=== PATIENT | female | born 1960 | race African-American/Black ===

== ENCOUNTER 2019-12-13 17:30 | Emergency (ER) | payer BC, SELFPAY ==
[2019-12-13 17:40] VITALS: BP 191/97; PULSE 74; RESP 20; TEMP 36.2; O2SAT 99
--- NOTE | 2019-12-13 19:03 | DI.RAD.S_ITS ---
PROCEDURE: XR THORACIC SPINE 2V INDICATIONS: left t spine pain TECHNIQUE: 2 views of the thoracic spine were acquired. COMPARISON: [facility], , THORACIC SPINE 3 VIEWS, 03/05/2016, 11:19. FINDINGS: Bones: No fractures or dislocations. No suspicious bony lesions. 12 pairs of ribs are noted, and appear intact where visualized. Soft tissues: No paravertebral stripe thickening. IMPRESSION: No evidence acute bony abnormality of the thoracic spine. If clinical suspicion and/or symptoms persist, further assessment with repeat plain films, or advanced imaging (e.g., CT, MRI, or bone scan) may be helpful for further assessment. Dictated by: Henrry Byrd M.D. on 12/13/2019 at 19:51 Approved by: Henrry Byrd M.D. on 12/13/2019 at 19:52
[2019-12-13] MEDS: CYCLOBENZAPRINE 10 MG TABLET PO (19:18)
[2019-12-13] MEDS: KETOROLAC 60 MG/2 ML VIAL 30 MG IM (19:18)
[2019-12-13] MEDS: LIDOCAINE PATCH 1 EACH ADH..PATCH TOP (19:19)
[2019-12-13 19:54] VITALS: BP 183/87; PULSE 59; RESP 12; O2SAT 99
[2019-12-13] MEDS: HYDROCODONE/ACET 5/325 TABLET 1 TAB PO (20:32)
--- NOTE | 2019-12-13 20:50 | ED.BACK ---
HPI - Back Pain/Injury <JAZMYNE Sellers - Last Filed: 12/14/19 11:16> General Chief Complaint: Back Pain/Injury Stated Complaint: chest pain Time Seen by Provider: 12/13/19 18:51 Source: patient and family Mode of arrival: Ambulatory Limitations: no limitations History of Present Illness HPI Narrative: The patient is a 59-year-old female who presents with a chief complaint of left-sided shoulder pain. It started 2 days ago. It comes is goes, is brought on by movement and twisting and reaching with her left arm. Patient does note that she had a ground level fall approximately 3 weeks ago and was seen at outside facility. She denies any chest pain or shortness of breath. She states that her pain feels very tight when it comes. It is nonradiating. She has not taken anything to try to feel better. She denies any recent falls or trauma since her ground level fall. She does work at [employer]. And she is able to point exactly where her pain is in her left back. Related Data Previous Rx's Medication Instructions Recorded hydrocodone-acetaminophen 1 tab PO HSP PRN #45 tab 03/05/16 simvastatin [Zocor] 80 mg PO Q PM #90 tab 07/14/16 levothyroxine 137 mcg PO HS #45 tab 08/12/16 bupropion HCl [Wellbutrin XL] 150 mg PO QDAY #30 tab 11/10/16 cyclobenzaprine 10 mg PO TID PRN #20 tab 12/13/19 hydrocodone-acetaminophen 1 tab PO Q4-6H PRN #5 tab 12/13/19 ketorolac 10 mg PO TID PRN #14 tab 12/13/19 Allergies Allergy/AdvReac Type Severity Reaction Status Date / Time nifedipine [NIFEDIPINE] AdvReac Severe MILD STROKE Verified 12/13/19 19:17 Penicillins [PENICILLINS] AdvReac Severe BAD YEAST Verified 12/13/19 19:15 INFECTION Review of Systems <JAZMYNE Sellers - Last Filed: 12/14/19 11:16> Review of Systems Narrative: GENERAL: Denies chills, fatigue, malaise, fever, sweats. HEENT: Denies sinus pain, ear pain, sore throat, difficulty swallowing, dizziness. RESPIRATORY: Denies dyspnea, cough, wheezing, hemoptysis, sputum. CARDIOVASCULAR: Denies chest pain, palpitations, orthopnea, edema, GASTROINTESTINAL: Denies nausea, vomiting, abdominal pain, diarrhea, constipation, melena. : Denies dysuria, frequency, incontinence, hematuria, urinary retention. MUSCULOSKELETAL: See HPI SKIN: Denies rash, skin lesions, or other NEUROLOGIC: Denies weakness, headache, numbness, change in speech, confusion, seizures, incoordination. PSYCHIATRIC: No concerning psychosocial issues. 12 point review of systems is negative except for those stated above Patient History <DELIA Sellers-BC - Last Filed: 12/14/19 11:16> Family History (Updated 02/19/16 @ 00:00 by Conversion Provider) Father Stomach cancer [place] (myocardial infarction) Mother Hypertension Heart disease Exam <JAZMYNE Sellers - Last Filed: 12/14/19 11:16> Narrative Exam Narrative: GENERAL: This is a well-nourished, well-developed patient, in no acute distress HEAD: Atraumatic. Normocephalic. No temporal or scalp tenderness. EYES: Pupils equal round and reactive. Extraocular motions intact. No scleral icterus. No injection or drainage. ENT: Nose without bleeding, purulent drainage or septal hematoma. Throat without erythema, tonsillar hypertrophy or exudate. Uvula midline. Airway patent. NECK: Trachea midline. No JVD or lymphadenopathy. Supple, nontender, no meningeal signs. CARDIOVASCULAR: Regular rate and rhythm RESPIRATORY: Clear to auscultation. Breath sounds equal bilaterally. No wheezes, rales, or rhonchi. No cough. No increased respiratory effort. No accessory muscle use. GASTROINTESTINAL: Abdomen soft, non-tender, nondistended. No hepato-splenomegaly, or palpable masses. No guarding. EXTREMITIES: general pain to palpation left posterior shoulder. Positive left radial pulse. BACK: Pain to thoracic spinal palpation, left-sided paraspinal muscles. No pain to CT or L-spine palpation. NEURO: AOx3. SKIN: No rash or erythema. Initial Vital Signs Initial Vital Signs: Vital Signs Temperature 97.2 F L 12/13/19 17:40 Pulse Rate 74 12/13/19 17:40 Respiratory Rate 20 12/13/19 17:40 Blood Pressure 191/97 H 12/13/19 17:40 Pulse Oximetry 99 12/13/19 17:40 <Darek Oconnor DO - Last Filed: 12/14/19 18:08> Initial Vital Signs Initial Vital Signs: Vital Signs Temperature 97.2 F L 12/13/19 17:40 Pulse Rate 74 12/13/19 17:40 Respiratory Rate 20 12/13/19 17:40 Blood Pressure 191/97 H 12/13/19 17:40 Pulse Oximetry 99 12/13/19 17:40 Scores <JAZMYNE Sellers - Last Filed: 12/14/19 11:16> GCS Akanksha coma scale eye opening: Spontaneous Akanksha coma scale verbal response: Orientated [place] coma scale motor response: Obey commands Akanksha coma scale total score: 15 Course <JAZMYNE Sellers - Last Filed: 12/14/19 11:16> Orders Ordered: Discontinued Medications Hydrocodone Bitart/Acetaminophen ([place] 5/325) 1 tab PO NOW ONE Stop: 12/13/19 20:24 Last Admin: 12/13/19 20:32 Dose: 1 tab Documented by: FLOR Hydrocodone Bitart/Acetaminophen (Vicodin 5/325 Prepack) 1 bottle MISC SEEINSTR ONE Stop: 12/13/19 21:10 Last Admin: 12/13/19 21:21 Dose: 1 bottle Documented by: FLOR Cyclobenzaprine HCl (Flexeril) 10 mg PO NOW ONE Stop: 12/13/19 19:02 Last Admin: 12/13/19 19:18 Dose: 10 mg Documented by: FLOR Ketorolac Tromethamine (Toradol) 30 mg IM NOW ONE Stop: 12/13/19 19:02 Last Admin: 12/13/19 19:18 Dose: 30 mg Documented by: FLOR Lidocaine (Lidoderm) 1 each TOP NOW ONE Stop: 12/13/19 19:02 Last Admin: 12/13/19 19:19 Dose: 1 each Documented by: FLOR Vital Signs Vital signs: Vital Signs - 8 hr 12/13/19 17:40 12/13/19 19:54 Temperature 97.2 F L Pulse Rate 74 59 L Respiratory Rate 20 12 Blood Pressure 191/97 H Blood Pressure [Right Arm] 183/87 H Pulse Oximetry 99 99 <Darek Oconnor DO - Last Filed: 12/14/19 18:08> Orders Ordered: Discontinued Medications Hydrocodone Bitart/Acetaminophen ([place] 5/325) 1 tab PO NOW ONE Stop: 12/13/19 20:24 Last Admin: 12/13/19 20:32 Dose: 1 tab Documented by: FLOR Hydrocodone Bitart/Acetaminophen (Vicodin 5/325 Prepack) 1 bottle MISC SEEINSTR ONE Stop: 12/13/19 21:10 Last Admin: 12/13/19 21:21 Dose: 1 bottle Documented by: FLOR Cyclobenzaprine HCl (Flexeril) 10 mg PO NOW ONE Stop: 12/13/19 19:02 Last Admin: 12/13/19 19:18 Dose: 10 mg Documented by: FLOR Ketorolac Tromethamine (Toradol) 30 mg IM NOW ONE Stop: 12/13/19 19:02 Last Admin: 12/13/19 19:18 Dose: 30 mg Documented by: FLOR Lidocaine (Lidoderm) 1 each TOP NOW ONE Stop: 12/13/19 19:02 Last Admin: 12/13/19 19:19 Dose: 1 each Documented by: FLOR Vital Signs Vital signs: Vital Signs - 8 hr 12/13/19 17:40 12/13/19 19:54 Temperature 97.2 F L Pulse Rate 74 59 L Respiratory Rate 20 12 Blood Pressure 191/97 H Blood Pressure [Right Arm] 183/87 H Pulse Oximetry 99 99 MDM - Back Pain/Injury <JAZMYNE Sellers - Last Filed: 12/14/19 11:16> Imaging Data t spine xray : Radiologist's Impression: [address] [place] [id number] XRay Report Signed Patient: Thalia Espinal LMR#: [id number] : 1960Acct:[id number] Age/Sex: 59 / FDate of Service: 12/13/19 Loc: ED Accession Number: [id number] Procedure: XR thoracic spine 2V Ordering Provider: Monserrat Tse PROCEDURE: XR THORACIC SPINE 2V INDICATIONS: left t spine pain TECHNIQUE: 2 views of the thoracic spine were acquired. COMPARISON: [facility], , THORACIC SPINE 3 VIEWS, 03/05/2016, 11:19. FINDINGS: Bones: No fractures or dislocations. No suspicious bony lesions. 12 pairs of ribs are noted, and appear intact where visualized. Soft tissues: No paravertebral stripe thickening. IMPRESSION: No evidence acute bony abnormality of the thoracic spine. If clinical suspicion and/or symptoms persist, further assessment with repeat plain films, or advanced imaging (e.g., CT, MRI, or bone scan) may be helpful for further assessment. Dictated by: Henrry Byrd M.D. on 12/13/2019 at 19:51 Approved by: Henrry Byrd M.D. on 12/13/2019 at 19:52 ECG Data Attestation: I personally reviewed and interpreted this ECG as follows: Interpretation: Sinus rhythm. Ventricular rate 65. P.r. 170. QRS 86. viewed by Dr Oconnor. [facility] Narrative Medical decision making narrative: The patient is a 59-year-old female who presents with a chief complaint of left-sided mid back pain that started yesterday. Is worse with reaching her arm, motion and twisting which raises concern for a musculoskeletal pathology. X-ray has no acute findings. EKG was done given that the patient has back pain and his female, and had no acute findings. The patient feels much improved after the above-stated therapies in prescriptions were prescribed. I discussed at length the importance of following up with primary care provider and gave her contact information at [facility] health water resource engineering specialist. Discussed coming back to the emergency department for any acute concerns such as chest pain, shortness of breath concern of heart attack or stroke. Patient daughter in-law have no questions or concerns upon discharge and state understanding of return precautions as well as follow-up care. Discharge Plan Departure Patient Disposition: Home Clinical Impression: Acute thoracic back pain Qualifiers: Back pain laterality: left Qualified Code(s): M54.6 - Pain in thoracic spine Discharge Date/Time: 12/13/19 21:26 Instructions: DI for Back Spasm, DI for Thoracic Back Pain Activity Restrictions/Additional Instructions: Thank you for trusting us with your care today As I discussed, your x-ray is no acute findings and your EKG looks good I sent 3 prescriptions to [facility]. I have given you a prescription of Toradol. This is an NSAID. Do not combine it with other NSAIDs such as Aleve or ibuprofen. I suggest taking it with some food, as it can irritate your stomach. I have given you a prescription of a narcotic for pain. Be aware that this can be constipating and sedating. I encouraged taking with a stool softener, pushing fluids and fiber. Do not take and drive, operate heavy machinery, etc. Do not combine it with any other sedating substances such as alcohol. The combination of narcotics and alcohol and/or other sedatives can be lethal. Please follow-up with primary care provider. I have given you contact information for the [facility] water resource engineering specialist. They can help you identify a PCP. As discussed please come back to the emergency department for any acute concerns. This includes concern of heart attack or stroke. Also includes new onset incontinence of bowel, incontinence of bladder or numbness in her groin. These are signs of spinal injury. Please come to the emergency department for any acute concerns. Prescriptions: New hydrocodone-acetaminophen 5-325 mg tablet 1 tab PO Q4-6H PRN (Reason: pain) Qty: 5 RF: 0 cyclobenzaprine 10 mg tablet 10 mg PO TID PRN (Reason: muscle spasm) Qty: 20 RF: 0 ketorolac 10 mg tablet 10 mg PO TID PRN (Reason: pain) Qty: 14 RF: 0 No Action hydrocodone-acetaminophen 5 MG/325 MG tablet 1 tab PO HSP PRNQty: 45 RF: 0 simvastatin [Zocor] 80 MG tablet 80 mg PO Q PM Qty: 90 RF: 1 levothyroxine 137 MCG tablet 137 mcg PO HS Qty: 45 RF: 0 bupropion HCl [Wellbutrin XL] 150 MG tablet extended release 24 hr 150 mg PO QDAY Qty: 30 RF: 0 Referrals: [facility] [Outside] <Darek Oconnor, - Last Filed: 12/14/19 18:08> [facility]: Dr Oconnor Co-Sign Statement: I was available for consultation during this patient's emergency department visit. This chart is signed by myself for administrative purposes only. I did not have direct contact with this patient during this visit. They were seen independently by the APC.
[2019-12-13] MEDS: HYDROCODONE/ACET 5/325 PREPACK 1 BOTTLE MISC (21:21)
[2019-12-13 21:24] VITALS: BP 155/69; PULSE 61; RESP 12; O2SAT 100
== END 2019-12-13 21:26 | disposition home or self-care (01) ==
PROVIDERS: Emergency Provider Nurse Practitioner Family; Family Provider Physician Assistant
DX: M54.6 Pain in thoracic spine (principal); R07.9 Chest pain, unspecified
CPT/HCPCS: 72070; 93005; 96372; 99283; 99284; J1885

== ENCOUNTER 2021-07-31 09:47 | Emergency (ER) | payer OTHER, SELFPAY ==
[2021-07-31 09:54] VITALS: BP 167/119; PULSE 63; PULSE 84; RESP 17; TEMP 37.4; O2SAT 100; O2SAT 99; BMI 29.0
[2021-07-31 09:55] VITALS: BP 167/119; PULSE 75; RESP 19; O2SAT 99
--- NOTE | 2021-07-31 09:59 | DI.RAD.S_ITS ---
PROCEDURE: XR CHEST 1V INDICATIONS: chest pain TECHNIQUE: One view of the chest was acquired. COMPARISON: [facility], , CHEST 2 VIEW, 02/20/2016, 9:05. FINDINGS: Surgical changes and devices: None. Lungs and pleura: On this semiupright portable chest examination, no large pneumothorax or large pleural effusions are seen. No focal infiltrates are seen. Mediastinum: Mediastinal contours appear normal. Heart size is normal. Bones and chest wall: No suspicious bony lesions. Age-appropriate bony degenerative changes are seen. Overlying soft tissues appear unremarkable. IMPRESSION: Portable chest within normal limits. Dictated by: Dominick Sanchez M.D. on 07/31/2021 at 9:51 Approved by: Dominick Sanchez M.D. on 07/31/2021 at 9:51
[2021-07-31 10:00] VITALS: BP 157/72; PULSE 74; RESP 21; O2SAT 100
--- NOTE | 2021-07-31 10:17 | ED.CHESTPAIN ---
HPI - Chest Pain General Chief Complaint: Chest Pain Stated Complaint: chest pains Time Seen by Provider: 07/31/21 10:03 Source: patient Mode of arrival: Ambulatory Limitations: no limitations History of Present Illness HPI narrative: 61-year-old female nonsmoker with history of GERD, hypothyroidism and hyperlipidemia presents with family in the chief complaint of a sharp and stabbing left anterior chest pain and upper respiratory symptoms including runny nose, nasal congestion and occasional harsh cough. Her pain is sharp and stabbing and worse with deep breath and cough. She denies fever or chills. She is not significantly short of breath. She denies nausea, vomiting or diarrhea. She denies any hemoptysis. She is fully vaccinated against COVID including booster. Related Data Previous Rx's Medication Instructions Recorded hydrocodone 5 mg-acetaminophen 325 1 tab PO HSP PRN #45 tab 03/05/16 mg tablet simvastatin 80 mg tablet (Zocor) 80 mg PO Q PM #90 tab 07/14/16 levothyroxine 137 mcg tablet 137 mcg PO HS #45 tab 08/12/16 bupropion HCl 150 mg 24 hr tablet, 150 mg PO QDAY #30 tab 11/10/16 extended release (Wellbutrin XL) cyclobenzaprine 10 mg tablet 10 mg PO TID PRN #20 tab 12/13/19 hydrocodone 5 mg-acetaminophen 325 1 tab PO Q4-6H PRN #5 tab 12/13/19 mg tablet ketorolac 10 mg tablet 10 mg PO TID PRN #14 tab 12/13/19 Allergies Allergy/AdvReac Type Severity Reaction Status Date / Time nifedipine [NIFEDIPINE] AdvReac Severe MILD STROKE Verified 07/31/21 09:59 Penicillins [PENICILLINS] AdvReac Severe BAD YEAST Verified 07/31/21 09:59 INFECTION Review of Systems Review of Systems Narrative: GENERAL: Denies chills, fatigue, malaise, fever, sweats. HEENT: Denies sinus pain, ear pain, sore throat, difficulty swallowing, dizziness. RESPIRATORY: See HPI CARDIOVASCULAR: See HP GASTROINTESTINAL: Denies nausea, vomiting, abdominal pain, diarrhea, constipation, melena. : Denies dysuria, frequency, incontinence, hematuria, urinary retention. MUSCULOSKELETAL: denies weakness, joint pain, or bony pain SKIN: Denies rash, skin lesions, or other NEUROLOGIC: Denies weakness, headache, numbness, change in speech, confusion, seizures, incoordination. PSYCHIATRIC: No concerning psychosocial issues. 12 point review of systems is negative except for those stated above Patient History Family History Father Stomach cancer MT (myocardial infarction) Mother Hypertension Heart disease Social History Smoking Status: Unknown if ever smoked Smoking Status: Unknown if ever smoked alcohol intake frequency: holidays/special occasions only Substance Use Type: does not use Exam Narrative Exam Narrative: GENERAL: [61 year old patient appears stated age. Well-developed patient, in mild distress. HEAD: Atraumatic. Normocephalic. EYES: Pupils equal round and reactive. Extraocular motions intact. No scleral icterus. No injection or drainage. ENT: Nose without bleeding, purulent drainage. Throat without erythema, tonsillar hypertrophy or exudate. Airway patent. NECK: Trachea midline. Non tender CARDIOVASCULAR: Regular rate and rhythm without murmurs, gallops, or rubs. Left lower ribs tender to palpate RESPIRATORY: Clear to auscultation. Breath sounds equal bilaterally. No wheezes, rales, or rhonchi. GASTROINTESTINAL: Abdomen soft, non-tender, nondistended. EXTREMITIES: No edema or joint tenderness. BACK: Nontender without deformity or crepitance. No flank tenderness. NEURO: AOx3. SKIN: No rash or erythema of visible areas Initial Vital Signs Initial Vital Signs: Vital Signs Temperature 99.4 F 07/31/21 09:54 Pulse Rate 63 07/31/21 09:54 Respiratory Rate 17 07/31/21 09:54 Blood Pressure 167/119 H 07/31/21 09:54 Pulse Oximetry 99 07/31/21 09:54 Course Orders Ordered: ED Orders 07/31/21 10:20 Complete Blood Count AUTO DIFF Stat Comprehensive Metabolic Panel Stat D Dimer Stat Lipase Stat Magnesium Stat Partial Thromboplastin Time Stat Procalcitonin Stat Prothrombin Time INR Stat Troponin & CK Cardiac Panel Stat Discontinued Medications Ketorolac Tromethamine (Ketorolac 30 Mg/Ml Vial) 15 mg IV NOW ONE Stop: 07/31/21 11:28 Last Admin: 07/31/21 11:42 Dose: 15 mg Documented by: ESTELA Vital Signs Vital signs: Vital Signs - 8 hr 07/31/21 11:30 Pulse Rate 72 Respiratory Rate 18 Blood Pressure 159/75 H Pulse Oximetry 99 MDM - Chest Pain Lab Data Result diagrams: 07/31/21 10:20 07/31/21 10:20 Labs: Lab Results 07/31/21 07/31/21 07/31/21 Range/Units 09:59 10:20 10:20 WBC 4.9 (4.5-11.0) X10^3/uL RBC 5.08 (4.0-5.2) X10^6/uL Hgb 12.9 (12.0-16.0) g/dL Hct 39.9 (36-46) % MCV 78.5 L (80-100) fL MCH 25.3 L (26-34) PG MCHC 32.2 (30-36) % RDW 15.7 H (11.6-14.8) % Plt Count 134 L (150-400) X10^3/uL Neut % (Auto) 44.3 L (50-75) % Lymph % (Auto) 38.7 (25-40) % [place] % (Auto) 16.2 H (3-14) % Eos % (Auto) 0.3 L (2-4) % Baso % (Auto) 0.5 (0-2) % Neut # (Auto) 2200 (5603-6144) /uL Lymph # (Auto) 1900 (7934-1379) /uL [place] # (Auto) 800 (0-900) /uL Eos # (Auto) 0 (0-450) /uL Baso # (Auto) 0 (0-100) /uL PT 12.1 (10.1-12.7) SECONDS INR 1.1 (0.9-1.3) APTT 34 (26.4-36.2) SECONDS D-Dimer (<230) ng/mL Sodium (137-145) mmol/L Potassium (3.4-5.1) mmol/L Chloride (98-107) mmol/L Carbon Dioxide (22-32) mmol/L BUN (7-17) mg/dL Creatinine (0.52-1.04) mg/dL Estimated GFR (>60) mL/min BUN/Creatinine Ratio (6-22) Glucose (70-100) mg/dL Calcium (8.4-10.2) mg/dL Magnesium (1.6-2.3) mg/dL Total Bilirubin (0.2-1.3) mg/dL AST (14-36) IU/L ALT (<35) IU/L Alkaline Phosphatase (38-126) U/L Total Creatine Kinase (30-135) U/L CK-MB (CK-2) CK-MB (CK-2) Rel Index Troponin I (0.01-0.034) ng/mL Total Protein (6.3-8.2) g/dL Albumin (3.5-5.0) g/dL Globulin (1.7-4.1) g/dL Albumin/Globulin Ratio (1.0-2.8) Lipase (23-300) U/L Procalcitonin (<0.5) ng/mL SARS-CoV-2 (PCR) Positive H (Negative) 07/31/21 07/31/21 07/31/21 Range/Units 10:20 10:20 10:20 WBC (4.5-11.0) X10^3/uL RBC (4.0-5.2) X10^6/uL Hgb (12.0-16.0) g/dL Hct (36-46) % MCV (80-100) fL MCH (26-34) PG MCHC (30-36) % RDW (11.6-14.8) % Plt Count (150-400) X10^3/uL Neut % (Auto) (50-75) % Lymph % (Auto) (25-40) % [place] % (Auto) (3-14) % Eos % (Auto) (2-4) % Baso % (Auto) (0-2) % Neut # (Auto) (7179-8289) /uL Lymph # (Auto) (3642-9428) /uL [place] # (Auto) (0-900) /uL Eos # (Auto) (0-450) /uL Baso # (Auto) (0-100) /uL PT (10.1-12.7) SECONDS INR (0.9-1.3) APTT (26.4-36.2) SECONDS D-Dimer 300 H (<230) ng/mL Sodium 142 (137-145) mmol/L Potassium 3.6 (3.4-5.1) mmol/L Chloride 106 (98-107) mmol/L Carbon Dioxide 28 (22-32) mmol/L BUN 13 (7-17) mg/dL Creatinine 0.89 (0.52-1.04) mg/dL Estimated GFR > 60.0 (>60) mL/min BUN/Creatinine Ratio 14.6 (6-22) Glucose 90 (70-100) mg/dL Calcium 9.6 (8.4-10.2) mg/dL Magnesium 2.2 (1.6-2.3) mg/dL Total Bilirubin 0.6 (0.2-1.3) mg/dL AST 26 (14-36) IU/L ALT 18 (<35) IU/L Alkaline Phosphatase 69 (38-126) U/L Total Creatine Kinase 73 (30-135) U/L CK-MB (CK-2) TNP CK-MB (CK-2) Rel Index TNP Troponin I < 0.012 (0.01-0.034) ng/mL Total Protein 7.7 (6.3-8.2) g/dL Albumin 4.2 (3.5-5.0) g/dL Globulin 3.5 (1.7-4.1) g/dL Albumin/Globulin Ratio 1.2 (1.0-2.8) Lipase 36 (23-300) U/L Procalcitonin 0.13 (<0.5) ng/mL SARS-CoV-2 (PCR) (Negative) Imaging Data Chest x-ray: Radiologist's Impression: [address] [address] XRay Report Signed Patient: Thalia Espinal MR#: [id number] : 1960 Acct:[id number] Age/Sex: 61 / F Date of Service: 07/31/21 Loc: ED Accession Number: [id number] ?? Procedure: XR chest 1V Ordering Provider: Dread Roman D.O. PROCEDURE:? XR CHEST 1V ? INDICATIONS:? chest pain ? TECHNIQUE:? One view of the chest was acquired.? ? COMPARISON:? [facility], , CHEST 2 VIEW, 02/20/2016, 9:05. ? FINDINGS:? ? Surgical changes and devices:? None.? ? Lungs and pleura:? On this semiupright portable chest examination, no large pneumothorax or large pleural effusions are seen.? No focal infiltrates are seen.? ? Mediastinum:? Mediastinal contours appear normal.? Heart size is normal.? ? Bones and chest wall:? No suspicious bony lesions.? Age-appropriate bony degenerative changes are seen. ? Overlying soft tissues appear unremarkable.? ? ? IMPRESSION:? ? Portable chest within normal limits. ? ? ? Dictated by: Dominick Sanchez M.D. on 07/31/2021 at 9:51 ? ? Approved by: Dominick Sanchez M.D. on 07/31/2021 at 9:51 ? MDM Narrative Medical decision making narrative: Patient with very reassuring history and physical exam. Multiple causes of chest pain considered including MT, PE, pneumothorax, pneumonia, aortic dissection, and pleurisy. Patient reports no radiation, no diaphoresis, no provocation with exertion, and no vomiting. Pain is sharp and stabbing and reproduceable in nature. EKGs are nonischemic. Troponin is negative and symptoms have been present for multiple days. COVID returned positive. Chest pain is most likely pleuritic and a consequence of the coughing from her COVID. She has no significant work of breathing, need for supplemental oxygen or other indication for hospitalization. Extensive return precautions discussed and questions answered to her apparent satisfaction Discharge Plan Departure Patient Disposition: Home Clinical Impression: COVID, Atypical chest pain Instructions: DI for Atypical Chest Pain, DI for COVID-19 (Suspected or Confirmed ) Activity Restrictions/Additional Instructions: *You have been diagnosed with [ COVID-19] *What to do: * per recommendations from the CDC and the [facility] Department of Health * stay home except to get medical care. Restrict activities outside your home, except for getting medical care. Do not go to work, school, or public areas. Avoid using public transportation, ride sharing, or taxis. * separate yourself from other people in your home. * call ahead before visiting your doctor * Wear a facemask * Cover your coughs and sneezes * Clean your hands often * Avoid sharing household items * Clean all high-touch services every day * Monitor your symptoms and seek prompt medical attention if your illness is worsening, particularly with difficulty in breathing. You may discontinue your isolation when: 1. You have been fever-free for at least 24 hours without the use of fever reducing medication, AND 2. Your symptoms are getting better, AND 3. At least 5 days have passed since symptoms first appeared 4. If you have fever, continue to stay home until fever resolves Individuals with laboratory confirmed COVID-19 who have not had any symptoms may discontinue home isolation when at least 5 days have passed since the date of their first COVID-19 diagnostic test and have had no subsequent illness You should notifiy any friends and family that have been in close contact *If up to date on COVID Vaccines, then they do not need to quarantine unless symptoms develop. Get tested on day 5 (or sooner if symptoms develop). Take precautions and watch for symptoms until day 10 *If NOT up to date on COVID Vaccines, then CDC recommends quarantine for at least 5 full days. Wear a well fitted mask at home if you must be around others. If they develop symptoms they should get tested. If they remain asymptomatic they should get tested on day 5. They should take precautions and monitor for symptoms until day 10. Prescriptions: No Action hydrocodone-acetaminophen 5 MG/325 MG tablet 1 tab PO HSP PRNQty: 45 0RF simvastatin [Zocor] 80 MG tablet 80 mg PO Q PM Qty: 90 1RF levothyroxine 137 MCG tablet 137 mcg PO HS Qty: 45 0RF bupropion HCl [Wellbutrin XL] 150 MG tablet extended release 24 hr 150 mg PO QDAY Qty: 30 0RF hydrocodone-acetaminophen 5-325 mg tablet 1 tab PO Q4-6H PRN (Reason: pain) Qty: 5 0RF cyclobenzaprine 10 mg tablet 10 mg PO TID PRN (Reason: muscle spasm) Qty: 20 0RF ketorolac 10 mg tablet 10 mg PO TID PRN (Reason: pain) Qty: 14 0RF
[2021-07-31 10:26] LABS: COVID19 -Nasal RAPID POSITIVE (Negative)
[2021-07-31 10:30] VITALS: BP 143/67; PULSE 72; RESP 17; O2SAT 99
[2021-07-31 10:30] LABS: Add Manual Diff / Slide Review NO; Basophils Absolute Auto 0 /uL (0-100); Basophils Percent Auto 0.5 % (0-2); Eosinophils Absolute Auto 0 /uL (0-450); Eosinophils Percent Auto 0.3 % (2-4); Hematocrit 39.9 % (36-46); Hemoglobin 12.9 g/dL (12.0-16.0); Lymphocytes Absolute Auto 1900 /uL (1100-4500); Lymphocytes Percent Auto 38.7 % (25-40); Mean Corpuscular HGB Conc 32.2 % (30-36); Mean Corpuscular Hemoglobin 25.3 PG (26-34); Mean Corpuscular Volume 78.5 fL (80-100); Monocytes Absolute Auto 800 /uL (0-900); Monocytes Percent Auto 16.2 % (3-14); Neutrophils Absolute Auto 2200 /uL (1500-7000); Neutrophils Percent Auto 44.3 % (50-75); Platelet Count 134 X10^3/uL (150-400); Red Blood Cell Count 5.08 X10^6/uL (4.0-5.2); Red Cell Distribution Width 15.7 % (11.6-14.8); White Blood Cell Count 4.9 X10^3/uL (4.5-11.0)
[2021-07-31 10:38] LABS: D Dimer 300 ng/mL (<230)
[2021-07-31 10:40] LABS: INR 1.1 (0.9-1.3); PTT Partial Thromboplastin Tim 34 SECONDS (26.4-36.2); Prothrombin Time 12.1 SECONDS (10.1-12.7)
[2021-07-31 10:43] LABS: Alanine Aminotransferase 18 IU/L (<35); Albumin 4.2 g/dL (3.5-5.0); Albumin Globulin Ratio 1.2 (1.0-2.8); Alkaline Phosphatase 69 U/L (38-126); Aspartate Aminotransferase 26 IU/L (14-36); BUN Creatinine Ratio 14.6 (6-22); Bilirubin Total 0.6 mg/dL (0.2-1.3); Blood Urea Nitrogen 13 mg/dL (7-17); Calcium 9.6 mg/dL (8.4-10.2); Carbon Dioxide 28 mmol/L (22-32); Chloride 106 mmol/L (98-107); Creatine Kinase 73 U/L (30-135); Estimated Glomerular Filt Rate > 60.0 mL/min (>60); Globulin 3.5 g/dL (1.7-4.1); Glucose 90 mg/dL (70-100); HEMOLYSIS < 15 (0-50); Lipase 36 U/L (23-300); Magnesium 2.2 mg/dL (1.6-2.3); Potassium 3.6 mmol/L (3.4-5.1); Sodium 142 mmol/L (137-145); Total Protein 7.7 g/dL (6.3-8.2)
[2021-07-31 10:54] LABS: Troponin I < 0.012 ng/mL (0.01-0.034)
[2021-07-31 11:00] VITALS: BP 132/79; PULSE 75; RESP 18; O2SAT 99
[2021-07-31 11:00] LABS: Procalcitonin 0.13 ng/mL (<0.5)
[2021-07-31 11:30] VITALS: BP 159/75; PULSE 72; RESP 18; O2SAT 99
[2021-07-31] MEDS: KETOROLAC 30 MG/ML VIAL 15 MG IV (11:42)
== END 2021-07-31 11:59 | disposition home or self-care (01) ==
PROVIDERS: Emergency Provider Emergency Medicine; Family Provider Physician Assistant
DX: U07.1 COVID-19 (principal); R07.89 Other chest pain
CPT/HCPCS: 36415; 71045; 80053; 82550; 83690; 83735; 84145; 84484; 85025; 85379; 85610; 85730; 87635; 93005; 93010; 96374; 99284; C9803; J1885

== ENCOUNTER 2021-12-11 10:01 | Emergency (ER) | payer OTHER, SELFPAY ==
[2021-12-11 10:14] VITALS: BP 152/87; PULSE 59; RESP 15; TEMP 36.1; O2SAT 100; BMI 28.1
--- NOTE | 2021-12-11 10:32 | DI.RAD.S_ITS ---
PROCEDURE: XR CHEST 1V INDICATIONS: Right-sided rib pain with hypertension TECHNIQUE: One view of the chest was acquired. COMPARISON: [facility], CR, XR CHEST 1V, 07/31/2021, 10:29. FINDINGS: Surgical changes and devices: None. Lungs and pleura: Lungs are clear. No pleural effusions or pneumothorax. Mediastinum: Mediastinal contours appear normal. Heart is enlarged. Bones and chest wall: No suspicious bony lesions. Overlying soft tissues appear unremarkable. IMPRESSION: No acute cardiopulmonary disease process. Dictated by: Ting Salvador MD, PhD on 12/11/2021 at 11:06 Approved by: Ting Salvador MD, PhD on 12/11/2021 at 11:06
[2021-12-11 11:54] VITALS: BP 139/77; PULSE 60; RESP 16; O2SAT 99
--- NOTE | 2021-12-11 12:18 | ED.ABDPAIN ---
HPI - Abdominal Pain <Desiree Reese [facility] - Last Filed: 12/11/21 15:11> General Chief Complaint: Abdominal Pain Stated Complaint: BP high 147/86 and pain in right side Time Seen by Provider: 12/11/21 10:31 Source: patient Mode of arrival: Ambulatory History of Present Illness HPI narrative: This is a 61-year-old female with history of hypertension, stroke, hyperlipidemia, hypothyroidism who presents to the emergency department complaining of intermittent right-sided rib/flank pain which started yesterday and she was concerned that her blood pressure was reading in the 140s systolic over 90s diastolic and thought it was related. Patient denies any recent fever, chest pain, shortness of breath, exertional shortness of breath, swelling in her extremities, cough, nausea, vomiting, heartburn, or any pain associated with food. She states she has been taking her medications as prescribed, denies any history of diabetes, denies being a smoker. She denies have any more blood in her stool, denies any genitourinary changes or complaint. Patient states that she is COVID vaccinated and has a history of COVID infection, denies any symptoms associated with COVID, any fever, endorses some mild fatigue and urinary frequency but denies any dysuria, states that her pain is on her right side rib and flank area and comes and goes. She denies any changes to her stool, denies any odor to her urine or any vaginal discharge. Related Data Previous Rx's Medication Instructions Recorded hydrocodone 5 mg-acetaminophen 325 1 tab PO HSP PRN #45 tabs 03/05/ mg tablet simvastatin 80 mg tablet (Zocor) 80 mg PO Q PM #90 tabs 07/14/16 levothyroxine 137 mcg tablet 137 mcg PO HS #45 tabs 08/12/16 bupropion HCl 150 mg 24 hr tablet, 150 mg PO QDAY #30 tabs 11/10/16 extended release (Wellbutrin XL) cyclobenzaprine 10 mg tablet 10 mg PO TID PRN muscle spasm #20 12/13/19 tabs hydrocodone 5 mg-acetaminophen 325 1 tab PO Q4-6H PRN pain #5 tabs 12/13/19 mg tablet ketorolac 10 mg tablet 10 mg PO TID PRN pain #14 tabs 12/13/19 cephalexin 500 mg capsule 500 mg PO BID 5 days #10 caps 12/11/21 fluconazole 150 mg tablet 150 mg PO Q3D 2 doses #2 tabs 12/11/21 Allergies Allergy/AdvReac Type Severity Reaction Status Date / Time nifedipine [NIFEDIPINE] AdvReac Severe MILD STROKE Verified 07/31/21 09:59 Penicillins [PENICILLINS] AdvReac Severe BAD YEAST Verified 07/31/21 09:59 INFECTION Review of Systems <MUKESH Rosenberg - Last Filed: 12/11/21 15:11> Review of Systems Narrative: General: denies fever, chills Head/Neck: denies headache, neck pain Eyes: denies visual changes, eye pain Cardio: denies chest pain, palpitations Respiratory: denies shortness of breath, denies any reproducible pain, denies pleurisy, or cough GI: denies abdominal pain, nausea, vomiting, or diarrhea : denies dysuria, hematuria, endorses urinary frequency and right-sided flank pain MSK: denies new joint pain, muscle weakness or swelling Skin: denies rash, itching or wound Neuro: denies numbness, tingling, dizziness Patient History <MUKESH Rosenberg - Last Filed: 12/11/21 15:11> Family History Father Stomach cancer [place] (myocardial infarction) Mother Hypertension Heart disease Social History Smoking Status: Unknown if ever smoked Smoking Status: Unknown if ever smoked alcohol intake frequency: holidays/special occasions only Substance Use Type: does not use Exam <MUKESH Rosenberg - Last Filed: 12/11/21 15:11> Narrative Exam Narrative: Independently reviewed vitals signs and nursing notes. General: cooperative, comfortable, in no acute distress, well groomed, afebrile Head: atraumatic, symmetrical facial expressions Neck: supple Eyes: equal round and reactive, EOMI, conjunctiva normal Nose: nares patent, no rhinorrhea Mouth/Throat: moist mucus membranes Cardiovascular: regular rate and rhythm, S1 and S2 without additional beats, no peripheral edema, warm extremities Respiratory: normal effort, able to speak in complete sentences, no audible wheezing, stridor, or rales. No retractions or tachypnea. GI: abdomen soft, bowel tones are active times all four quadrants, nontender to palpation, nondistended, no masses, no exquisite tenderness with exam, without guarding or rebound. MSK: moves all extremities, neurovascularly intact, no weakness, normal tone Skin: brisk capillary refill, no rash, no erythema Neuro: normal speech and cognition, A&O x3 Psych: mental status is grossly normal, congruent mood, normal affect, pleasant and cooperative Initial Vital Signs Initial Vital Signs: Vital Signs Temperature 97.0 F L 12/11/21 10:14 Pulse Rate 59 L 12/11/21 10:14 Respiratory Rate 15 12/11/21 10:14 Blood Pressure 152/87 H 12/11/21 10:14 Pulse Oximetry 100 12/11/21 10:14 Oxygen Delivery Method 12/11/21 10:14 <Darek Oconnor DO - Last Filed: 12/11/21 16:16> Initial Vital Signs Initial Vital Signs: Vital Signs Temperature 97.0 F L 12/11/21 10:14 Pulse Rate 59 L 12/11/21 10:14 Respiratory Rate 15 12/11/21 10:14 Blood Pressure 152/87 H 12/11/21 10:14 Pulse Oximetry 100 12/11/21 10:14 Oxygen Delivery Method 12/11/21 10:14 Course <MUKESH Rosenberg - Last Filed: 12/11/21 15:11> Orders Ordered: ED Orders 12/11/21 10:32 XR chest 1V Stat EKG-12 Lead Stat 12/11/21 12:26 UA dip and micro [Urinalysis and Microscopic] Stat 12/11/21 12:40 CT kidney ureter bladder (KUB) Stat 12/11/21 12:41 CBC Auto Diff [Complete Blood Count AUTO DIFF] Stat CMP [Comprehensive Metabolic Panel] Stat Lipase Stat Magnesium Stat Troponin & CK Cardiac Panel Stat 12/11/21 12:46 Urine Culture Stat 12/11/21 13:33 Consult to Cardiology Stat Vital Signs Vital signs: Vital Signs - 8 hr 12/11/21 10:14 12/11/21 11:54 Temperature 97.0 F L Pulse Rate 59 L 60 Respiratory Rate 15 16 Blood Pressure 152/87 H 139/77 Pulse Oximetry 100 99 Oxygen Delivery Method Room Air Room Air <Darek Oconnor DO - Last Filed: 12/11/21 16:16> Orders Ordered: ED Orders 12/11/21 10:32 XR chest 1V Stat EKG-12 Lead Stat 12/11/21 12:26 UA dip and micro [Urinalysis and Microscopic] Stat 12/11/21 12:40 CT kidney ureter bladder (KUB) Stat 12/11/21 12:41 CBC Auto Diff [Complete Blood Count AUTO DIFF] Stat CMP [Comprehensive Metabolic Panel] Stat Lipase Stat Magnesium Stat Troponin & CK Cardiac Panel Stat 12/11/21 12:46 Urine Culture Stat 12/11/21 13:33 Consult to Cardiology Stat Vital Signs Vital signs: Vital Signs - 8 hr 12/11/21 10:14 12/11/21 11:54 Temperature 97.0 F L Pulse Rate 59 L 60 Respiratory Rate 15 16 Blood Pressure 152/87 H 139/77 Pulse Oximetry 100 99 Oxygen Delivery Method Room Air Room Air MDM - Abdominal Pain <MUKESH Rosenberg - Last Filed: 12/11/21 15:11> Lab Data Result diagrams: 12/11/21 12:41 12/11/21 12:41 Labs: Lab Results 12/11/21 12/11/21 12/11/21 Range/Units 12:26 12:41 12:41 WBC 6.4 (4.5-11.0) X10^3/uL RBC 5.04 (4.0-5.2) X10^6/uL Hgb 12.8 (12.0-16.0) g/dL Hct 39.9 (36-46) % MCV 79.2 L (80-100) fL MCH 25.4 L (26-34) PG MCHC 32.1 (30-36) % RDW 15.2 H (11.6-14.8) % Plt Count 130 L (150-400) X10^3/uL Neut % (Auto) 44.9 L (50-75) % Lymph % (Auto) 45.5 H (25-40) % [place] % (Auto) 7.2 (3-14) % Eos % (Auto) 1.8 L (2-4) % Baso % (Auto) 0.6 (0-2) % Neut # (Auto) 2900 (5490-1256) /uL Lymph # (Auto) 2900 (4330-5751) /uL [place] # (Auto) 500 (0-900) /uL Eos # (Auto) 100 (0-450) /uL Baso # (Auto) 0 (0-100) /uL Sodium 141 (137-145) mmol/L Potassium 4.1 (3.4-5.1) mmol/L Chloride 105 (98-107) mmol/L Carbon Dioxide 27 (22-32) mmol/L BUN 14 (7-17) mg/dL Creatinine 0.79 (0.52-1.04) mg/dL Estimated GFR > 60 (>60) mL/min BUN/Creatinine Ratio 17.7 (6-22) Glucose 100 (70-100) mg/dL Calcium 9.1 (8.4-10.2) mg/dL Magnesium 2.2 (1.6-2.3) mg/dL Total Bilirubin 0.6 (0.2-1.3) mg/dL AST 34 (14-36) IU/L ALT 19 (<35) IU/L Alkaline Phosphatase 78 (38-126) U/L Total Creatine Kinase 173 H (30-135) U/L CK-MB (CK-2) 0.43 (<2.37) ng/mL CK-MB (CK-2) Rel Index 0.2 L (1.5-5.0) % Troponin I < 0.012 (0.01-0.034) ng/mL Total Protein 7.6 (6.3-8.2) g/dL Albumin 4.4 (3.5-5.0) g/dL Globulin 3.2 (1.7-4.1) g/dL Albumin/Globulin Ratio 1.4 (1.0-2.8) Lipase 44 (23-300) U/L Urine Color Yellow Urine Appearance Cloudy Urine pH 5.0 (4.5-8.0) Ur Specific [place] 1.020 (1.000-1.035) Urine Protein Negative (Negative) Urine Glucose (UA) Negative (Negative) g/dL Urine Ketones Negative (NEGATIVE) Urine Occult Blood 1+ H (Negative) Urine Nitrate Negative (Negative) Urine Bilirubin Negative (NEGATIVE) Urine Urobilinogen 0.2 (0.2) E.U./dL Ur Leukocyte Esterase Negative (NEGATIVE) Urine RBC 0-1/hpf (0-5/HPF) Urine WBC 0-1/hpf (0-5/HPF) Ur Squamous Epith Cells >30 /hpf H (0-5/HPF) Urine Bacteria Many (>30) H (None) Ur Culture Indicated? Cult not indicated Imaging Data Chest x-ray: Radiologist's Impression: PROCEDURE:? XR CHEST 1V ? INDICATIONS:? Right-sided rib pain with hypertension ? TECHNIQUE:? One view of the chest was acquired.? ? COMPARISON:? [facility], CR, XR CHEST 1V, 07/31/2021, 10:29. ? FINDINGS:? ? Surgical changes and devices:? None.? ? Lungs and pleura:? Lungs are clear.? No pleural effusions or pneumothorax.? ? Mediastinum:? Mediastinal contours appear normal.? Heart is enlarged. ? Bones and chest wall:? No suspicious bony lesions.? Overlying soft tissues appear unremarkable.? ? IMPRESSION:? No acute cardiopulmonary disease process. ? ? Dictated by: Ting Salvador MD, PhD on 12/11/2021 at 11:06 ? ? Approved by: Ting Salvador MD, PhD on 12/11/2021 at 11:06 ? CT scan - abdomen/pelvis: Radiologist's Impression: PROCEDURE:? CT KIDNEY URETER BLADDER (KUB) ? INDICATIONS:? rt flank pain, intermittent, +hematuria ? TECHNIQUE:? Axial sections were acquired from the lung bases to the pubic symphysis.? Coronal and sagittal reformats were performed.? For radiation dose reduction, the following was used: ?automated exposure control, adjustment of mA and/or kV according to patient size.? ? COMPARISON:? None. ? FINDINGS:? Image quality:? Excellent.? ? Lung bases:? Unremarkable.? ? Heart:? Heart is mildly enlarged.? Small volume of pericardial fluid. ? URINARY: Right Kidney: ? No stones or hydronephrosis.? Right Ureter:? No hydroureter.? ? Left Kidney: ? No stones or hydronephrosis. Left Ureter:? No hydroureter.? ? Bladder:? Normal wall thickness. No stones. ? ? ? ABDOMEN: Liver:? Unremarkable.? ? Gallbladder:? Unremarkable.? ? Biliary ducts:? Unremarkable.? ? Pancreas:? Unremarkable.? ? Spleen:? Unremarkable.? ? Adrenal Glands:? Unremarkable.? ? ? Stomach and Bowel:? Stomach, small bowel loops, and colon are unremarkable. Scattered colonic diverticuli without evidence of diverticulitis.? The appendix is normal. Peritoneum:? No abnormal intraperitoneal fluid.? No free air.? ? Ventral Wall: ? No hernia.? Abdominal Nodes:? No enlarged retroperitoneal or mesenteric lymph nodes.? Vessels:? Aorta and inferior vena cava are normal in size.? ? PELVIS: Pelvic Organs:? Unremarkable.? ? Pelvic Nodes: Unremarkable. Miscellaneous: No inguinal hernias are seen. ? ? ? Bones:? Spine degenerative disc disease and facet arthropathy. ? IMPRESSION: ? No renal stone or hydronephrosis. ? Mild cardiomegaly with small pericardial fluid collection. ? Appendix is normal. ? Colonic diverticulosis without evidence of diverticulitis. ? Dictated by: Ting Salvador MD, PhD on 12/11/2021 at 12:58 ? ? Approved by: Ting Salvador MD, PhD on 12/11/2021 at 13:03 ? ECG Data Interpretation: EKG independently reviewed by Dr. Oconnor and myself and reveals sinus bradycardia at 59 bpm with regular axis and intervals. No STEMI, ST segment changes, arrhythmia, or acute ischemic changes. MDM Narrative Medical decision making narrative: This is a 61-year-old female presents emergency department with concerns about intermittent right-sided flank/rib pain which started yesterday but she also endorses intermittent midsternal chest pain which she did not mention until the end of her visit today. She denies any shortness of breath, respiratory complete of any kind including fever, cough, pleurisy, her right-sided rib pain is not reproducible with deep inspiration that it is tender to palpation. X-ray of her right ribs were negative for acute fracture. Patient endorses urinary frequency, denies any dysuria, urgency, odor to her urine or any other GI or complaint. Urine dip showed 1+ blood, sent down from microscopy, showed many bacteria with squamous epithelial cells which is likely contaminant. Patient denies any recent fever systemic symptoms of illness. Her lab work is grossly unremarkable without leukocytosis, her creatinine is stable, electrolytes are within normal ranges, no elevation to her liver enzymes, her total CK is elevated at 173 from prior in July 2072, negative troponin, lipase of 44. CT abdomen pelvis without contrast was obtained for evaluation of her right-sided flank pain and hematuria. CT shows no renal stone or hydronephrosis, it did show mild cardiomegaly with small pericardial fluid collection, appendix is normal, diverticulosis without evidence of diverticulitis. Patient denies any history of surgery to her abdomen. Discussing these results with the patient, she then tells me that she has had intermittent chest pain which is in the center of her chest, denies any nausea vomiting, palpitations, lightheadedness or dizziness, or any other symptoms. Differential diagnoses for finding of her pericardial fluid collection include malignancy, infection, pericarditis, congestive heart failure. Discussed possibility of COVID illness, patient denies all symptoms, denies wanting to be tested for COVID today. She was given contact information referrals place for cardiology so she can follow-up in have an echocardiogram. Her EKG was without any ST changes, arrhythmia, it had normal axis and intervals. Patient was treated for her right flank pain with hematuria with Keflex as she was concerned about infection in this is why she came in she says. Patient was encouraged to stay hydrated, follow up with her primary doctor and Cardiology, and to return to the emergency department if she has any more chest pain, shortness of breath, vomiting, diaphoresis, or any other symptoms. Multiple causes of chest pain considered including CA, PE, pneumothorax, pneumonia, aortic dissection, and pleurisy. Patient reports no radiation, no diaphoresis, no provocation with exertion, and no vomiting. Patient is appropriate and amenable to discharge home. Vital signs are stable on repeat examination is unremarkable. Patient has been informed of results. Patient has been given strict return to ER precautions for any new or worsening symptoms. Patient understands to follow up closely with outpatient providers as instructed. Patient understands plan and agrees to discharge home. All questions and concerns answered at this time. <Darek Oconnor, DO - Last Filed: 12/11/21 16:16> Lab Data Labs: Lab Results 12/11/21 12/11/21 12/11/21 Range/Units 12:26 12:41 12:41 WBC 6.4 (4.5-11.0) X10^3/uL RBC 5.04 (4.0-5.2) X10^6/uL Hgb 12.8 (12.0-16.0) g/dL Hct 39.9 (36-46) % MCV 79.2 L (80-100) fL MCH 25.4 L (26-34) PG MCHC 32.1 (30-36) % RDW 15.2 H (11.6-14.8) % Plt Count 130 L (150-400) X10^3/uL Neut % (Auto) 44.9 L (50-75) % Lymph % (Auto) 45.5 H (25-40) % [place] % (Auto) 7.2 (3-14) % Eos % (Auto) 1.8 L (2-4) % Baso % (Auto) 0.6 (0-2) % Neut # (Auto) 2900 (5391-1926) /uL Lymph # (Auto) 2900 (4407-5271) /uL [place] # (Auto) 500 (0-900) /uL Eos # (Auto) 100 (0-450) /uL Baso # (Auto) 0 (0-100) /uL Sodium 141 (137-145) mmol/L Potassium 4.1 (3.4-5.1) mmol/L Chloride 105 (98-107) mmol/L Carbon Dioxide 27 (22-32) mmol/L BUN 14 (7-17) mg/dL Creatinine 0.79 (0.52-1.04) mg/dL Estimated GFR > 60 (>60) mL/min BUN/Creatinine Ratio 17.7 (6-22) Glucose 100 (70-100) mg/dL Calcium 9.1 (8.4-10.2) mg/dL Magnesium 2.2 (1.6-2.3) mg/dL Total Bilirubin 0.6 (0.2-1.3) mg/dL AST 34 (14-36) IU/L ALT 19 (<35) IU/L Alkaline Phosphatase 78 (38-126) U/L Total Creatine Kinase 173 H (30-135) U/L CK-MB (CK-2) 0.43 (<2.37) ng/mL CK-MB (CK-2) Rel Index 0.2 L (1.5-5.0) % Troponin I < 0.012 (0.01-0.034) ng/mL Total Protein 7.6 (6.3-8.2) g/dL Albumin 4.4 (3.5-5.0) g/dL Globulin 3.2 (1.7-4.1) g/dL Albumin/Globulin Ratio 1.4 (1.0-2.8) Lipase 44 (23-300) U/L Urine Color Yellow Urine Appearance Cloudy Urine pH 5.0 (4.5-8.0) Ur Specific [place] 1.020 (1.000-1.035) Urine Protein Negative (Negative) Urine Glucose (UA) Negative (Negative) g/dL Urine Ketones Negative (NEGATIVE) Urine Occult Blood 1+ H (Negative) Urine Nitrate Negative (Negative) Urine Bilirubin Negative (NEGATIVE) Urine Urobilinogen 0.2 (0.2) E.U./dL Ur Leukocyte Esterase Negative (NEGATIVE) Urine RBC 0-1/hpf (0-5/HPF) Urine WBC 0-1/hpf (0-5/HPF) Ur Squamous Epith Cells >30 /hpf H (0-5/HPF) Urine Bacteria Many (>30) H (None) Ur Culture Indicated? Cult not indicated Discharge Plan Departure Patient Disposition: Home Clinical Impression: Acute pericardial effusion, Cardiomegaly, Acute flank pain, Hematuria due to acute cystitis Instructions: Acute Cystitis, DI for Pericarditis Activity Restrictions/Additional Instructions: *You have been diagnosed with a small pericardial effusion, blood in your urine and some bacteria which may be a urinary infection associated with your right-sided flank pain. Please take this antibiotic twice a day for the next five days, remember to stay hydrated, call and schedule follow-up with Dr. Ying, placed of referral to Dr. Burden for follow-up about your pericardial effusion. If you develop persistent chest pain, shortness of breath, or difficulty breathing, please return to the emergency department for another evaluation. I hope you feel better soon. *What to do: *Please continue to take your regular medications as directed. [x ] New medication prescriptions sent to your pharmacy: [[facility] ] [ ] New medication written as a paper prescription [ ] No new medications given *Please follow up with your primary care provider in 2-3 days, call for an appointment. Let them know you were seen in the Emergency Department and that we asked that you be seen for follow-up. We will electronically transmit a record of today's note if your PCP is in our system *If you do not have a primary care provider please contact [phone] to establish care with one of the [facility] primary care providers. *Return to Emergency Department if you should have any new, worsening or concerning symptoms, such as [fever greater than 101F, chills, worsening pain, persistent vomiting or other bothersome symptoms] Prescriptions: New cephalexin 500 mg capsule 500 mg PO BID 5 Days Qty: 10 0RF fluconazole 150 mg tablet 150 mg PO Q3D Qty: 2 0RF No Action hydrocodone-acetaminophen 5 MG/325 MG tablet 1 tab PO HSP PRNQty: 45 0RF simvastatin [Zocor] 80 MG tablet 80 mg PO Q PM Qty: 90 1RF levothyroxine 137 MCG tablet 137 mcg PO HS Qty: 45 0RF bupropion HCl [Wellbutrin XL] 150 MG tablet extended release 24 hr 150 mg PO QDAY Qty: 30 0RF hydrocodone-acetaminophen 5-325 mg tablet 1 tab PO Q4-6H PRN (Reason: pain) Qty: 5 0RF cyclobenzaprine 10 mg tablet 10 mg PO TID PRN (Reason: muscle spasm) Qty: 20 0RF ketorolac 10 mg tablet 10 mg PO TID PRN (Reason: pain) Qty: 14 0RF Referrals: Daniel Ying MD [Non-Staff] - Imelda Burden MD [Physician] - Visit Report Forms: Patient Portal/API <Darek Oconnor DO - Last Filed: 12/11/21 16:16> [facility] Dr Oconnor Co-Sign Statement: I was available for consultation during this patient's emergency department visit. This chart is signed by myself for administrative purposes only. I did not have direct contact with this patient during this visit. They were seen independently by the APC.
[2021-12-11 12:29] LABS: Appearance Urine UA CLOUDY; Bilirubin Urine UA NEGATIVE (NEGATIVE); Color Urine UA YELLOW; Glucose Urine UA NEGATIVE (Negative); Ketones Urine UA NEGATIVE (NEGATIVE); Leukocyte Esterase Urine UA NEGATIVE (NEGATIVE); Nitrite Urine UA NEGATIVE (Negative); Occult Blood Urine UA 1+ (Negative); Protein Urine UA NEGATIVE (Negative); Urobilinogen Urine UA 0.2 E.U./dL (0.2)
[2021-12-11 12:40] LABS: Bacteria Urine Many (>30); Culture Indicated Urine Cult Not Indicated; RBC Urine 0-1/HPF (0-5/HPF); Squamous Epithelial Cell Urine >30 /HPF (0-5/HPF); WBC Urine 0-1/HPF (0-5/HPF)
--- NOTE | 2021-12-11 12:40 | DI.CT.S_ITS ---
PROCEDURE: CT KIDNEY URETER BLADDER (KUB) INDICATIONS: rt flank pain, intermittent, +hematuria TECHNIQUE: Axial sections were acquired from the lung bases to the pubic symphysis. Coronal and sagittal reformats were performed. For radiation dose reduction, the following was used: automated exposure control, adjustment of mA and/or kV according to patient size. COMPARISON: None. FINDINGS: Image quality: Excellent. Lung bases: Unremarkable. Heart: Heart is mildly enlarged. Small volume of pericardial fluid. URINARY: Right Kidney: No stones or hydronephrosis. Right Ureter: No hydroureter. Left Kidney: No stones or hydronephrosis. Left Ureter: No hydroureter. Bladder: Normal wall thickness. No stones. ABDOMEN: Liver: Unremarkable. Gallbladder: Unremarkable. Biliary ducts: Unremarkable. Pancreas: Unremarkable. Spleen: Unremarkable. Adrenal Glands: Unremarkable. Stomach and Bowel: Stomach, small bowel loops, and colon are unremarkable. Scattered colonic diverticuli without evidence of diverticulitis. The appendix is normal. Peritoneum: No abnormal intraperitoneal fluid. No free air. Ventral Wall: No hernia. Abdominal Nodes: No enlarged retroperitoneal or mesenteric lymph nodes. Vessels: Aorta and inferior vena cava are normal in size. PELVIS: Pelvic Organs: Unremarkable. Pelvic Nodes: Unremarkable. Miscellaneous: No inguinal hernias are seen. Bones: Spine degenerative disc disease and facet arthropathy. IMPRESSION: No renal stone or hydronephrosis. Mild cardiomegaly with small pericardial fluid collection. Appendix is normal. Colonic diverticulosis without evidence of diverticulitis. Dictated by: Ting Salvador MD, PhD on 12/11/2021 at 12:58 Approved by: Ting Salvador MD, PhD on 12/11/2021 at 13:03
[2021-12-11 12:50] LABS: Add Manual Diff / Slide Review NO; Basophils Absolute Auto 0 /uL (0-100); Basophils Percent Auto 0.6 % (0-2); Eosinophils Absolute Auto 100 /uL (0-450); Eosinophils Percent Auto 1.8 % (2-4); Hematocrit 39.9 % (36-46); Hemoglobin 12.8 g/dL (12.0-16.0); Lymphocytes Absolute Auto 2900 /uL (1100-4500); Lymphocytes Percent Auto 45.5 % (25-40); Mean Corpuscular HGB Conc 32.1 % (30-36); Mean Corpuscular Hemoglobin 25.4 PG (26-34); Mean Corpuscular Volume 79.2 fL (80-100); Monocytes Absolute Auto 500 /uL (0-900); Monocytes Percent Auto 7.2 % (3-14); Neutrophils Absolute Auto 2900 /uL (1500-7000); Neutrophils Percent Auto 44.9 % (50-75); Platelet Count 130 X10^3/uL (150-400); Red Blood Cell Count 5.04 X10^6/uL (4.0-5.2); Red Cell Distribution Width 15.2 % (11.6-14.8); White Blood Cell Count 6.4 X10^3/uL (4.5-11.0)
[2021-12-11 13:03] LABS: Alanine Aminotransferase 19 IU/L (<35); Albumin 4.4 g/dL (3.5-5.0); Albumin Globulin Ratio 1.4 (1.0-2.8); Alkaline Phosphatase 78 U/L (38-126); Aspartate Aminotransferase 34 IU/L (14-36); BUN Creatinine Ratio 17.7 (6-22); Bilirubin Total 0.6 mg/dL (0.2-1.3); Blood Urea Nitrogen 14 mg/dL (7-17); Calcium 9.1 mg/dL (8.4-10.2); Carbon Dioxide 27 mmol/L (22-32); Chloride 105 mmol/L (98-107); Creatine Kinase 173 U/L (30-135); Estimated Glomerular Filt Rate > 60 mL/min (>60); Globulin 3.2 g/dL (1.7-4.1); Glucose 100 mg/dL (70-100); HEMOLYSIS 26 (0-50); Lipase 44 U/L (23-300); Magnesium 2.2 mg/dL (1.6-2.3); Potassium 4.1 mmol/L (3.4-5.1); Sodium 141 mmol/L (137-145); Total Protein 7.6 g/dL (6.3-8.2)
[2021-12-11 13:14] LABS: Troponin I < 0.012 ng/mL (0.01-0.034)
[2021-12-11 13:18] LABS: CKMB % Relative Index 0.2 % (1.5-5.0); Creatine Kinase MB 0.43 ng/mL (<2.37)
== END 2021-12-11 13:42 | disposition home or self-care (01) ==
PROVIDERS: Emergency Provider Nurse Practitioner Critical Care Medicine; Family Provider Physician Assistant
DX: I30.9 Acute pericarditis, unspecified (principal); I51.7 Cardiomegaly; N30.01 Acute cystitis with hematuria; I10 Essential (primary) hypertension; R07.9 Chest pain, unspecified; R10.9 Unspecified abdominal pain
CPT/HCPCS: 36415; 71045; 74176; 80053; 81001; 82550; 82553; 83690; 83735; 84484; 85025; 87086; 93005; 99284

== ENCOUNTER 2023-11-07 16:20 | Emergency (ER) | payer OTHER, SELFPAY ==
[2023-11-07] VITALS (10 sets, daily range): BP systolic 152–182; BP diastolic 69–84; PULSE 54–61; RESP 12–19; TEMP 37; O2SAT 95–99; BMI 29.7
--- NOTE | 2023-11-07 16:34 | DI.RAD.S_ITS ---
PROCEDURE: XR WRIST LT MIN 3V INDICATIONS: injury TECHNIQUE: 4 views of the wrist were acquired. COMPARISON: None. FINDINGS: Bones: Comminuted distal intra-articular fracture of the radius with slight apex volar angulation and foreshortening. Ulnar styloid fracture of unknown chronicity. No suspicious bony lesions. Mild to moderate osteoarthritic changes of the 1st carpometacarpal/triscaphe joint Soft tissues: No suspicious soft tissue calcifications. IMPRESSION: Comminuted distal radial fracture. Ulnar styloid fracture which may be chronic. Dictated by: Rogelio Dukes M.D. on 11/07/2023 at 15:55 Approved by: Rogelio Dukes M.D. on 11/07/2023 at 15:58
[2023-11-07] MEDS: HYDROMORPHONE 0.5 MG INJ IV ×2 (20:25→21:24)
--- NOTE | 2023-11-07 21:04 | ED.UPPEXIN ---
HPI - Extremity Injury (Upper) General Chief Complaint: Extremity Injury, Upper Stated Complaint: lt wrist injury, fall Time Seen by Provider: 11/07/23 21:04 Source: patient Mode of arrival: Family Vehicle History of Present Illness HPI narrative: 63-year-old female complains of left wrist pain after fall while roller-skating a proximally 4:00 p.m. today. No other injuries. She denies pain in her neck, head, face, right upper extremity, lower extremities, back. She has no discomfort in her left shoulder, arm, elbow, hand or fingers. Related Data Previous Rx's Medication Instructions Recorded hydrocodone 5 mg-acetaminophen 325 1 tab PO HSP PRN #45 tabs 03/05/16 mg tablet simvastatin 80 mg tablet (Zocor) 80 mg PO Q PM #90 tabs 07/14/16 levothyroxine 137 mcg tablet 137 mcg PO HS #45 tabs 08/12/16 bupropion HCl 150 mg 24 hr tablet, 150 mg PO QDAY #30 tabs 11/10/16 extended release (Wellbutrin XL) cyclobenzaprine 10 mg tablet 10 mg PO TID PRN muscle spasm #20 12/13/19 tabs hydrocodone 5 mg-acetaminophen 325 1 tab PO Q4-6H PRN pain #5 tabs 12/13/19 mg tablet ketorolac 10 mg tablet 10 mg PO TID PRN pain #14 tabs 12/13/19 fluconazole 150 mg tablet 150 mg PO Q3D 2 doses #2 tabs 12/11/21 Allergies Allergy/AdvReac Type Severity Reaction Status Date / Time nifedipine [NIFEDIPINE] AdvReac Severe MILD STROKE Verified 11/07/23 16:41 Penicillins [PENICILLINS] AdvReac Severe BAD YEAST Verified 11/07/23 16:41 INFECTION Review of Systems Review of Systems ROS Unobtainable: All systems reviewed & are unremarkable except as noted in HPI and below Patient History Family History Father Stomach cancer [place] (myocardial infarction) Mother Hypertension Heart disease Social History Smoking Status: Never smoker Smoking Status: Never smoker alcohol intake frequency: holidays/special occasions only Substance Use Type: does not use Exam Narrative Exam Narrative: GENERAL: Well-developed patient, in mild distress. HEAD: Atraumatic. Normocephalic. EYES: Pupils equal round and reactive. Extraocular motions intact. No scleral icterus. No injection or drainage. ENT: Nose without bleeding, purulent drainage. Throat without erythema, tonsillar hypertrophy or exudate. Airway patent. NECK: Trachea midline. Non tender CARDIOVASCULAR: Regular rate and rhythm without murmurs, gallops, or rubs. RESPIRATORY: Clear to auscultation. Breath sounds equal bilaterally. No wheezes, rales, or rhonchi. GASTROINTESTINAL: Abdomen soft, non-tender, nondistended. EXTREMITIES: Tenderness and swelling to left wrist, good radial pulse, good cap refill fingers. No tenderness proximal forearm, elbow, upper arm, shoulder, clavicle. Also no tenderness to distal hand MCPs and fingers on the left side. Right upper extremity and both lower extremities atraumatic appearing, no gross abnormalities with normal range of motion. BACK: Nontender without deformity or crepitance. No flank tenderness. NEURO: AOx3. SKIN: No rash or erythema of visible areas Initial Vital Signs Initial Vital Signs: Vital Signs Temperature 98.6 F 11/07/23 16:35 Pulse Rate 58 L 11/07/23 16:35 Respiratory Rate 17 11/07/23 16:35 Blood Pressure 178/84 H 11/07/23 16:35 Pulse Oximetry 99 11/07/23 16:35 Oxygen Delivery Method Room Air 11/07/23 16:35 Course Orders Ordered: Discontinued Medications Hydromorphone HCl (Hydromorphone 0.5 Mg Inj) 0.5 mg IV NOW ONE Stop: 11/07/23 20:07 Last Admin: 11/07/23 20:25 Dose: 0.5 mg Documented By: Hydromorphone HCl (Hydromorphone 0.5 Mg Inj) 0.5 mg IV NOW ONE Stop: 11/07/23 21:05 Last Admin: 11/07/23 21:24 Dose: 0.5 mg Documented By: Tramadol HCl (Tramadol 50 Mg Prepack) 1 bottle MISC DIRECTED ONE Stop: 11/07/23 21:08 Last Admin: 11/07/23 21:42 Dose: 1 bottle Documented By: Vital Signs Vital signs: Vital Signs - 8 hr 11/07/23 21:00 11/07/23 21:00 11/07/23 21:30 Pulse Rate 60 57 L Respiratory Rate 14 12 Blood Pressure 166/74 H Pulse Oximetry 95 97 11/07/23 21:31 11/07/23 21:31 Pulse Rate 54 L Respiratory Rate Blood Pressure 174/79 H Pulse Oximetry 96 [facility] - Extremity Injury (Upper) Imaging Data Extremity x-ray #1: Radiologist's Impression: [address] [address] XRay Report Signed Patient: Thalia Espinal MR#: [id number] : 1960 Acct:[id number] Age/Sex: 63 / F Date of Service: 11/07/23 Loc: ED Accession Number: [id number] Procedure: XR wrist LT min 3V Ordering Provider: Carole Sue D.O. PROCEDURE: XR WRIST LT MIN 3V INDICATIONS: injury TECHNIQUE: 4 views of the wrist were acquired. COMPARISON: None. FINDINGS: Bones: Comminuted distal intra-articular fracture of the radius with slight apex volar angulation and foreshortening. Ulnar styloid fracture of unknown chronicity. No suspicious bony lesions. Mild to moderate osteoarthritic changes of the 1st carpometacarpal/triscaphe joint Soft tissues: No suspicious soft tissue calcifications. IMPRESSION: Comminuted distal radial fracture. Ulnar styloid fracture which may be chronic. Dictated by: Rogelio Dukes M.D. on 11/07/2023 at 15:55 Approved by: Rogelio Dukes M.D. on 11/07/2023 at 15:58 [facility] Narrative Medical decision making narrative: 63-year-old female with fall while roller-skating 4:30 p.m., tenderness and swelling distal wrist, on x-ray has comminuted fracture distal radius, seems fairly well aligned, no retraction seems necessary at this time. Sugar-tong splint after pain meds, IV Dilaudid. Follow up with local orthopedic surgery. Home pack tramadol. Home with family Discharge Plan Departure Patient Disposition: Home Clinical Impression: Closed fracture distal radius and ulna Instructions: DI for Distal Radius Fracture Activity Restrictions/Additional Instructions: Fall while roller-skating, with left wrist pain, and x-ray there is comminuted multiple piece fractures in the distal radius bone, also a small ulnar styloid fracture, the fracture fragments at this time seem fairly well aligned, though this is considered an unstable fracture and might very well need surgical pinning for stabilization. Splint applied, sling, keep elevated, pain medications to use as needed. Follow up with local orthopedic surgery, contact information for Dr. Canchola, call his office for further follow up tomorrow morning. Return to this/nearest emergency department for any change worsening symptoms or any concerns prior Prescriptions: No Action hydrocodone-acetaminophen 5 MG/325 MG tablet 1 tab PO HSP PRNQty: 45 0RF simvastatin [Zocor] 80 MG tablet 80 mg PO Q PM Qty: 90 1RF levothyroxine 137 MCG tablet 137 mcg PO HS Qty: 45 0RF bupropion HCl [Wellbutrin XL] 150 MG tablet extended release 24 hr 150 mg PO QDAY Qty: 30 0RF hydrocodone-acetaminophen 5-325 mg tablet 1 tab PO Q4-6H PRN (Reason: pain) Qty: 5 0RF cyclobenzaprine 10 mg tablet 10 mg PO TID PRN (Reason: muscle spasm) Qty: 20 0RF ketorolac 10 mg tablet 10 mg PO TID PRN (Reason: pain) Qty: 14 0RF fluconazole 150 mg tablet 150 mg PO Q3D Qty: 2 0RF Referrals: Javi Canchola MD [Physician] - Stand Alone Forms: Patient Portal/API
[2023-11-07] MEDS: TRAMADOL 50 MG PREPACK 1 BOTTLE MISC (21:42)
== END 2023-11-07 21:52 | disposition home or self-care (01) ==
PROVIDERS: Emergency Provider Emergency Medicine
DX: S52.502A Unspecified fracture of the lower end of left radius, initial encounter for closed fracture (principal); S52.612A Displaced fracture of left ulna styloid process, initial encounter for closed fracture; W18.30XA Fall on same level, unspecified, initial encounter; Y93.51 Activity, roller skating (inline) and skateboarding
CPT/HCPCS: 29125; 36415; 73110; 96374; 96376; 99284; J1170

== ENCOUNTER → 2023-11-12 12:05 | Outpatient (CLI) | payer OTHER, SELFPAY ==
--- NOTE | 2023-11-12 12:06 | DI.CT.S_ITS ---
PROCEDURE: CT WRIST LEFT WITHOUT CON INDICATIONS: LEFT WRIST FRACTURE W SLIGHT DISPLACEMENT TECHNIQUE: Noncontrast 1 mm axial sections acquired through the carpal bones, with coronal and sagittal reformats. [facility], XR WRIST 3+ VIEWS LEFT, 11/10/2023, 9:57. FINDINGS: Image quality: Excellent. Bones: Mildly displaced, ulnar styloid fracture. Mildly impacted, comminuted, intra-articular fracture of the distal radius. Neutral articular surface of the distal radius. Mild degenerative change at the triscaphe joint. In addition, there is a minimally displaced avulsion fracture of the triquetrum (series 5, image 58). Soft tissue findings: The flexor, in the extensor tendons are grossly unremarkable. Diffuse subcutaneous edema about the wrist. IMPRESSION: 1. Mildly displaced ulnar styloid fracture. 2. Mildly impacted distal radius fracture. 3. Small avulsion fracture of the triquetrum. Dictated by: Anna Cadet M.D. on 11/12/2023 at 22:01 Approved by: Anna Cadet M.D. on 11/12/2023 at 22:06
== END ==
LOC: CT 12:05
PROVIDERS: Referring Provider Physician Assistant Medical; Visit Provider Physician Assistant Medical
DX: S52.572A Other intraarticular fracture of lower end of left radius, initial encounter for closed fracture (principal); S52.612A Displaced fracture of left ulna styloid process, initial encounter for closed fracture; S62.115A Nondisplaced fracture of triquetrum [cuneiform] bone, left wrist, initial encounter for closed fracture; X58.XXXA Exposure to other specified factors, initial encounter
CPT/HCPCS: 73200